=== PATIENT | female | born 1970 | race Asian ===

== ENCOUNTER → 2016-10-13 | Outpatient (CLI) | payer OTHER ==
[2016-10-13 16:29] LABS: BASO # 0.1 (0.0-0.2); BASO % 0.8 % (0.0-2.0); EOS # 0.2 (0.0-0.7); EOS % 3.4 % (0-4.0); GRAN # 3.4 (1.4-6.5); HEMATOCRIT 38.3 % (37.0-47.0); LYMPH # 1.8 (1.2-3.4); LYMPH % 30.7 % (20.0-51.0); MEAN CELL VOLUME 84 fl (80.0-100.0); MEAN CORPUSCULAR HEMOGLOBIN 28 pg (27.0-31.0); MEAN CORPUSCULAR HGB CONC 34 g/dl (33.0-37.0); MEAN PLATELET VOLUME 9.9 fl (7.4-10.4); MONO # 0.5 (0.1-0.6); MONO % 7.9 % (1.7-9.3); PLATELET COUNT 242 K/mm3 (130-400); RED BLOOD COUNT 4.57 M/mm3 (4.10-5.30); REDCELL DISTRIBUTION WIDTH-CV 12.7 % (11.5-14.5); WHITE BLOOD COUNT 5.9 K/mm3 (4.8-10.8)
[2016-10-13 16:57] LABS: PH 5 (5-8); SQUAMOUS EPITHELIAL 0-2 /hpf; URINE APPEARANCE Clear; URINE BACTERIA Rare /hpf; URINE BILIRUBIN Negative (NEGATIVE); URINE BLOOD Negative (NEGATIVE); URINE COLOR Yellow; URINE GLUCOSE Negative (NEGATIVE); URINE KETONE Negative (NEGATIVE); URINE RBC 0-2 /hpf; URINE UROBILINOGEN Negative (NEGATIVE)
[2016-10-13 17:05] LABS: ERYTHROCYTE SEDIMENTATION RATE 21 mm/hr (0-20)
[2016-10-13 17:38] LABS: THYROID STIMULATING HORMONE 4.12 uIU/mL (0.465-4.680)
[2016-10-17 15:34] LABS: CYCLIC CITRULLINATED PEP IGG <15.6 U (())
[2016-10-18 20:41] LABS: ANA SCREEN with REFLEX Positive (Negative)
[2016-11-02 14:29] LABS: ANA REFLEX ANTI CENTROMERE 4 U/mL (0-99); ANA REFLEX ANTI HISTONE 11 U/mL (0-99); ANA REFLEX ANTI RNP 141 U/mL (0-99); ANA REFLEX ANTI SCL 32 U/mL (0-99); ANA REFLEX ANTI SM 63 U/mL (0-99); ANA REFLEX ANTI SSA 23 U/mL (0-99); ANA REFLEX ANTI SSB 19 U/mL (0-99); ANA REFLEX ANTI-DS DNA 14 U/mL (0-99); ANA REFLEX ANTI-JO-1 32 U/mL (0-99)
== END ==
LOC: COL.LAB 15:38
PROVIDERS: Registered Nurse
DX: M79.602 Pain in left arm (principal); R23.1 Pallor

== ENCOUNTER → 2016-10-18 | Outpatient (CLI) | payer OTHER | LOC: COL.VAS 11:53 | DX: R23.1 Pallor (principal) ==

== ENCOUNTER 2016-10-27 11:15 | Outpatient (RCR) | payer OTHER | END 2016-10-28 08:44 | disposition home or self-care (01) | LOC: WSPT 11:15 | DX: M79.602 Pain in left arm (principal) ==

== ENCOUNTER → 2016-10-28 | Outpatient (CLI) | payer OTHER ==
[2016-11-01 18:09] LABS: ALBUMIN 4.1 gm/dL (3.5-5.0); BILIRUBIN,TOTAL 1.1 mg/dL (0.0-1.0); CALCIUM 9.1 mg/dL (8.4-10.2); CREATININE, serum 0.55 mg/dL (0.52-1.25); POTASSIUM 3.9 mmol/L (3.4-5.0); TOTAL PROTEIN 8.3 gm/dL (6.4-8.2)
== END ==
LOC: COL.LAB 09:43
PROVIDERS: Registered Nurse
DX: Z13.220 Encounter for screening for lipoid disorders (principal)